=== PATIENT | female | born 1975 | race Caucasian/White ===

== ENCOUNTER 2019-04-21 19:53 | Emergency (ER) | payer OTHER ==
[~2019-04-21] VITALS: Ht 172.7 cm; Wt 99.8 kg
[2019-04-21 20:15] VITALS: BP 125/83
[2019-04-21] MEDS ORDERED: CLONAZEPAM 0.50.5 M1 PO (20:31)
[2019-04-21] MEDS ORDERED: NORCO 5-325 TA1 EAC1 PO (20:33)
== END 2019-04-21 20:15 | disposition home or self-care (01) ==
LOC: ER 19:53
DX: F41.9 Anxiety disorder, unspecified (principal)